=== PATIENT | male | born 1990 | race Asian ===

== ENCOUNTER 2017-07-05 12:45 | Emergency (ER) | payer OTHER ==
[~2017-07-05] VITALS: Ht 172.7 cm; Wt 82.9 kg
[2017-07-05 15:09] VITALS: BP 141/90
== END 2017-07-05 15:10 | disposition home or self-care (01) ==
LOC: EME 12:45
DX: M25.531 Pain in right wrist (principal); M79.601 Pain in right arm; M25.511 Pain in right shoulder; R20.0 Anesthesia of skin; R20.2 Paresthesia of skin; S60.511A Abrasion of right hand, initial encounter; V49.40XA Driver injured in collision with unspecified motor vehicles in traffic accident, initial encounter; W22.10XA Striking against or struck by unspecified automobile airbag, initial encounter
CPT/HCPCS: 72040; 72125; 73030; 73090; 73130; 99281; 99284

== ENCOUNTER 2017-07-28 21:28 | Emergency (ER) | payer OTHER ==
[~2017-07-28] VITALS: Ht 172.7 cm; Wt 78.6 kg
[2017-07-28 22:10] LABS: EOSINOPHIL COUNT 0.3 K/uL (0-0.3); HEMATOCRIT 45.9 % (38.0-50.0); IMMATURE GRANULOCYTE (%) 0.1 % (0.0-0.7); INSTRUMENT ABS NEUTROPHIL CT 3.4 K/uL; LYMPHOCYTE COUNT 2.7 K/uL (1.0-2.8); MCH 31.3 PG (29.0-34.0); MCHC 33.8 G/DL (30.0-36.0); MCV 92.5 FL (86-99); MEAN PLAT.VOLUME 9.2 uM^3 (9.0-12.4); MONOCYTE (%) 4.5 % (3-12); MONOCYTE COUNT 0.3 K/uL (0-0.8); NEUTROPHIL (%) 50.4 % (45-76); NEUTROPHIL COUNT 3.4 K/uL (1.8-6.4); PLATELET COUNT 224 K/uL (156-360); RBC DIS.WIDTH-CV 10.9 % (11.8-14.6); RBC DIS.WIDTH-SD 37.2 % (39-53); RED BLOOD COUNT 4.96 M/uL (4.00-5.50); WHITE BLOOD COUNT 6.8 K/uL (4.1-10.2)
[2017-07-28 22:28] LABS: ANION GAP 7 MEQ/L (2-14); CHLORIDE 101 MEQ/L (99-109); DIRECT BILIRUBIN 0.2 mg/dL (0.0-0.3); POTASSIUM 3.8 MEQ/L (3.7-5.4); SAMPLE HEMOLYSIS CHECK 0; SAMPLE ICTERIC CHECK 0; SAMPLE LIPEMIA CHECK 0; SODIUM 138 MEQ/L (136-147); TOTAL BILIRUBIN 1.2 MG/DL (0.0-1.0)
[2017-07-28 22:34] LABS: ALKALINE PHOSPHATASE 38 IU/L (3-129); GFR ESTIMATE (CALCULATED) > 59 mL/min/; GLUCOSE 94 mg/dL (70-99); UREA NITROGEN (BUN) 22 mg/dL (9-23)
[2017-07-28 22:50] VITALS: BP 157/89
[2017-07-29 09:51] LABS: AHBS INDEX 737.67; HIV INDEX 0.13; HIV-1/2 AB/AG COMBO Nonreactive; HPCA INDEX 0.18
[2017-07-29 09:57] LABS: HEPATITIS B SURFACE ANTIBODY REACTIVE
== END 2017-07-28 22:51 | disposition home or self-care (01) ==
LOC: EME 21:28
PROVIDERS: Emergency Medicine
DX: S61.031A Puncture wound without foreign body of right thumb without damage to nail, initial encounter (principal); W46.0XXA Contact with hypodermic needle, initial encounter; Y99.0 Civilian activity done for income or pay; Z77.21 Contact with and (suspected) exposure to potentially hazardous body fluids
CPT/HCPCS: 80048; 80076; 85025; 86703; 86706; 86803; 99281; 99284